=== PATIENT | female | born 1965 | race Caucasian/White ===

== ENCOUNTER 2016-09-08 13:42 | Outpatient (CLI) ==
[2015-05-13 16:34] VITALS: BMI 21.9
[2016-09-08 17:03] LABS: FLU INTERNAL QC INTERNAL QC VALID; RAPID FLU A NEGATIVE (NEGATIVE); RAPID FLU B NEGATIVE (NEGATIVE)
== END 2016-09-08 13:43 | disposition home or self-care (01) ==
LOC: LAB 13:42
PROVIDERS: ATTEND Nurse Practitioner Family
DX: J02.9 Acute pharyngitis, unspecified (principal); R50.9 Fever, unspecified; R52 Pain, unspecified
CPT/HCPCS: 87651; 87804; 87880

== ENCOUNTER 2018-04-12 11:41 | Outpatient (CLI) ==
[2015-05-13 16:34] VITALS: BMI 21.9
== END 2018-04-12 11:42 | disposition home or self-care (01) ==
LOC: RHC-LAB 11:41
PROVIDERS: ATTEND Nurse Practitioner Family
DX: I10 Essential (primary) hypertension (principal); Z72.0 Tobacco use; Z86.73 Personal history of transient ischemic attack (TIA), and cerebral infarction without residual deficits
CPT/HCPCS: 36415; 80053; 80061; 84443; 85025

== ENCOUNTER 2019-03-24 14:12 | Emergency (ER) ==
[2019-03-24 14:15] VITALS: BP 149/82; TEMP 98.6; BMI 21.7
[2019-03-24] MEDS ORDERED: DILAUDID 1 MG/ML SYRINGE IVP STA (14:21)
[2019-03-24] MEDS ORDERED: ZOFRAN 4 MG/2 ML IVP STA (14:22)
[2019-03-24] MEDS ORDERED: DEMEROL 25 MG/ML VIAL IVP STA (14:25)
--- NOTE | 2019-03-24 14:38 | ED.PDOC ---
General ED Provider: Dr. JERE KOLB-ER Chief Complaint: Abdominal Pain Stated Complaint: doroteo been hurting for 4 days--i ate some potato wedges and it make it worse Time Seen by Physician: 14:15 Mode of Arrival: Walk-In Information Source: Patient Exam Limitations: No limitations Primary Care Provider: RUBI العراقي Nursing and Triage Documentation Reviewed and Agree: Yes Does patient meet sepsis criteria?: No System Inflammatory Response Syndrome: Not Applicable Sepsis Protocol: For patient's 13 years and over: Temp is 96.8 and below OR 101 and greater Pulse >90 BPM Resp >20/minute Acutely Altered Mental Status Are patient's symptoms suggestive of a new infection, such as: -Pneumonia -Skin, Soft Tissue -Endocarditis -UTI -Bone, Joint Infection -Implantable Device -Acute Abdominal Infection -Wound Infection -Meningitis -Blood Stream Catheter Infection -Unknown GI Complaint Exam - Abdominal Pain Complaint/Exam Onset: Gradual Duration: 4 days Symptoms Are: Still present Timing: Constant Initial Severity: Mild Current Severity: Mild Location of Pain: Discrete, RLQ Radiates To: Reports: Back Character: Reports: Dull, Aching Associated Signs and Symptoms: Reports: Diarrhea Patient Rh Status: Unknown Abdominal Findings: Present: None Quality Indicator For Non-Traumatic Chest Pain/Syncope: EKG Performed Review of Systems - Review Of Systems Constitutional: Reports: No symptoms Eyes: Reports: No symptoms Ears, Nose, Mouth, Throat: Reports: No symptoms Respiratory: Reports: No symptoms Cardiac: Reports: No symptoms GI: Reports: Abdominal pain, Diarrhea : Reports: No symptoms Musculoskeletal: Reports: No symptoms Skin: Reports: No symptoms Neurological: Reports: No symptoms Endocrine: Reports: No symptoms Hematologic/Lymphatic: Reports: No symptoms All Other Systems: Reviewed and Negative Past Medical History - Past Medical History Previously Healthy: Yes Endocrine: Reports: None Cardiovascular: Reports: None Respiratory: Reports: None Hematological: Reports: None Gastrointestinal: Reports: None Genitourinary: Reports: None Neuro/Psych: Reports: None Musculoskeletal: Reports: Unknown Cancer: Reports: None Last Menstrual Period: none Other Pertinent Past Medical History: one child - Surgical History General Surgical History: Reports: None - Family History Family History: Reports: Unknown - Social History Smoking Status: Current every day smoker, Heavy tobacco smoker Hx Substance Use: No Alcohol Screening: None Physical Exam - Physical Exam Appearance: Well-appearing, No pain distress, Well-nourished Pain Distress: Mild Eyes: JACEK, EOMI, Conjunctiva clear ENT: Ears normal, Nose normal, Oropharynx normal Neck: Supple Respiratory: Airway patent, Breath sounds clear, Breath sounds equal, Respirations nonlabored Cardiovascular: RRR, Pulses normal, No rub, No murmur GI/: Soft, No masses, Bowel sounds normal, No Organomegaly, Tender Musculoskeletal: Normal strength, ROM intact, No edema, No calf tenderness Skin: Warm Neurological: Sensation intact, Motor intact, Reflexes intact, Cranial nerves intact, Alert, Oriented Psychiatric: Affect appropriate, Mood appropriate Interpretation - Radiology Interpretation Radiology Interpretation By: Radiologist Radiology Results: Negative Exam Interpreted: CT Scan - EKG Interpretation Time of EKG #1: 14:38 Rate: Normal Rhythm: Sinus Ectopy: None [place]: NL ST Segment: Normal Interpretation: nsr Critical Care Note - Critical Care Note Total Time (mins): 0 Course - Course Hematology/Chemistry: 03/24/19 14:33 03/24/19 14:33 Orders, Labs, Meds: Lab Review 03/24/19 03/24/19 03/24/19 14:25 14:33 14:33 WBC 10.33 H RBC 4.26 Hgb 13.2 Hct 38.1 MCV 89.4 MCH 31.0 MCHC 34.6 RDW Coeff of Debi 12.7 Plt Count 399 Immature Gran % (Auto) 0.2 Neut % (Auto) 54.3 Lymph % (Auto) 31.5 [place] % (Auto) 8.5 Eos % (Auto) 4.5 Baso % (Auto) 1.0 Immature Gran # (Auto) 0.0 Neut # (Auto) 5.6 Lymph # (Auto) 3.3 [place] # (Auto) 0.9 Eos # (Auto) 0.5 Baso # (Auto) 0.1 ESR 8 Sodium 140.1 Potassium 4.01 Chloride 105.3 Carbon Dioxide 28.9 Anion Gap 9.91 BUN 9.8 Creatinine 0.61 Estimated GFR (MDRD) 103.00 BUN/Creatinine Ratio 16.06 Glucose 151.0 H Calcium 9.79 Total Bilirubin 0.57 AST 27.7 ALT 18.1 Alkaline Phosphatase 100.4 Total Protein 7.49 Albumin 4.59 Globulin 2.90 Albumin/Globulin Ratio 1.58 Amylase 67.2 Lipase 61.5 Serum , Qual Urine Color Yellow Urine Clarity Clear Urine pH 6.0 Ur Specific [place] 1.025 Urine Protein Negative Urine Glucose (UA) Negative Urine Ketones Negative Urine Blood Trace-intact Urine Nitrite Negative Urine Bilirubin Negative Urine Urobilinogen 1.0 Ur Leukocyte Esterase Negative Urine Microscopic RBC 2-5 Urine Microscopic WBC 0-2 Ur Squamous Epith Cells 5-10 Amorphous Sediment Trace Urine Bacteria Trace 03/24/19 14:33 WBC RBC Hgb Hct MCV MCH MCHC RDW Coeff of Debi Plt Count Immature Gran % (Auto) Neut % (Auto) Lymph % (Auto) [place] % (Auto) Eos % (Auto) Baso % (Auto) Immature Gran # (Auto) Neut # (Auto) Lymph # (Auto) [place] # (Auto) Eos # (Auto) Baso # (Auto) ESR Sodium Potassium Chloride Carbon Dioxide Anion Gap BUN Creatinine Estimated GFR (MDRD) BUN/Creatinine Ratio Glucose Calcium Total Bilirubin AST ALT Alkaline Phosphatase Total Protein Albumin Globulin Albumin/Globulin Ratio Amylase Lipase Serum , Qual Negative Urine Color Urine Clarity Urine pH Ur Specific [place] Urine Protein Urine Glucose (UA) Urine Ketones Urine Blood Urine Nitrite Urine Bilirubin Urine Urobilinogen Ur Leukocyte Esterase Urine Microscopic RBC Urine Microscopic WBC Ur Squamous Epith Cells Amorphous Sediment Urine Bacteria Orders Category Date Time Status EKG-(ED ONLY) Stat CARDIO 03/24/19 14:21 Completed NPO REMINDER: IMAGING ONCE CARE 03/24/19 14:22 Active ED IV/MEDIPORT/POWERPORT .ONCE EMERGENCY 03/24/19 14:21 Active AMYLASE Stat LAB 03/24/19 14:33 Completed CBC W/ AUTO DIFF Stat LAB 03/24/19 14:33 Completed COMPREHENSIVE METABOLIC PANEL Stat LAB 03/24/19 14:33 Completed ESR Stat LAB 03/24/19 14:33 Completed LIPASE Stat LAB 03/24/19 14:33 Completed SERUM Stat LAB 03/24/19 14:33 Completed URINALYSIS C & S IF INDICATED Stat LAB 03/24/19 14:25 Completed 0.9 % Sodium Chloride [Saline Flush] MEDS 03/24/19 14:20 Active 1 syr IVF PRN PRN Meperidine HCl/Pf [Demerol 25 mg/ml Vial] MEDS 03/24/19 14:25 Discontinued 25 mg IVP ONCE STA Ondansetron HCl/Pf [Zofran 4 mg/2 ml] MEDS 03/24/19 14:22 Discontinued 4 [address] IVP ONCE STA CT ABDOMEN/PELVIS W/WO CONTRAS Stat RADS 03/24/19 14:22 Completed Medications Generic Name Dose Route Start Last Admin Trade Name Freq PRN Reason Stop Dose Admin Sodium Chloride 1 syr 03/24/19 14:20 03/24/19 14:49 Saline Flush IVF 1 syr PRN PRN Administration To flush IV Discontinued Medications Generic Name Dose Route Start Last Admin Trade Name Freq PRN Reason Stop Dose Admin Meperidine HCl 25 mg 03/24/19 14:25 03/24/19 14:49 Demerol 25 Mg/Ml Vial IVP 03/24/19 14:26 25 mg ONCE STA Administration Ondansetron HCl 4 mg 03/24/19 14:22 03/24/19 14:49 Zofran 4 Mg/2 Ml IVP 03/24/19 14:23 4 mg ONCE STA Administration Vital Signs: Temp Pulse Resp BP Pulse Ox 03/24/19 14:13 98.6 F 93 H 18 149/82 H 95 Departure - Departure Time of Disposition: 16:31 Disposition: HOME SELF-CARE Discharge Problem: Abdominal pain Instructions: Abdominal Pain (ED) Condition: Good Pt referred to PMD for follow-up: Yes IPMP verified?: No Additional Instructions: low fat diet---talk to your pcp about gb studies Allergies/Adverse Reactions: Allergies losartan Adverse Reaction (Mild, Verified 03/24/19 14:16) Difficulty Breathing Home Medications: Ambulatory Orders [place]-3/Dha/Epa/Fish Oil [Fish Oil 500 Mg Softgel] 1 each PO DAILY 06/05/18 Disposition Discussed With: Patient, Family
--- NOTE | 2019-03-24 16:10 | CT ---
EXAM: CT scan of the abdomen and pelvis with and without contrast HISTORY: Right lower quadrant pain TECHNIQUE: Helical imaging of the abdomen pelvis was performed before and after the intravenous admi nistration of contrast. 3 mm thin axial images and coronal and sagittal reconstructions were provide d for interpretation. Comparison 03/30/2011. FINDINGS: The liver, spleen, pancreas, kidneys appear normal. The proximal ureters are normal size. There is mild dilatation of the mid and distal small bowel loops seen within the pelvis by fluid. There is no definite transition point. The colon appears to be normal caliber. The proximal small b owel appears to be normal caliber. There is no free air. There is a normal appearance of the append ix. The helical images obtained through the pelvis demonstrate a normal appearance of the rectum, urinary bladder. There is no free fluid seen within the pelvis. Lung bases are clear. No lytic or blastic lesions are seen within the osseous structures. IMPRESSION: There is no bowel obstruction. There is minimal dilatation of the mid and distal small bowel loops seen within the pelvis and the fi ndings may represent gastroenteritis.. There is no ureteral obstruction.
== END 2019-03-24 16:38 | disposition home or self-care (01) ==
LOC: ED 14:12
DX: R10.9 Unspecified abdominal pain (principal); R19.7 Diarrhea, unspecified; F17.210 Nicotine dependence, cigarettes, uncomplicated
CPT/HCPCS: 36415; 80053; 81001; 82150; 83690; 84703; 85025; 85651; 93005; 93010; 96374; 96375; 99283